=== PATIENT | male | born 1985 | race Caucasian/White ===

== ENCOUNTER → 2017-02-26 | Outpatient (CLI) | payer OTHER ==
[2017-02-26 09:54] LABS: SEMEN TIME OF COLLECTION 815
[2017-02-26 09:55] LABS: DAYS OF ABSTINENCE 4; METHOD OF COLLECTION MASTURBATION; SEMEN COLOR YELLOW-GRAY (GRY/GRYWHTE); SEMEN VOLUME 2.2 ML (>1.5); TYPE OF SPECIMEN CONTAINER STERILE CUP
[2017-02-26 09:57] LABS: SPERM VIABILITY STAIN NOT INDICATED % (>58%)
== END | disposition home or self-care (01) ==
LOC: C.LAB 09:20
PROVIDERS: ATTEND Physician Assistant
DX: Z31.69 Encounter for other general counseling and advice on procreation (principal)